=== PATIENT | female | born 1960 | race Caucasian/White ===

== ENCOUNTER 2017-02-05 00:14 | Emergency (ER) | payer BC, MEDICAID, OTHER ==
[2017-02-05] MEDS ORDERED: methylPREDNISolone Sodium Succinate 125 MG/2 ML SDV IM ONE (00:15)
[2017-02-05] MEDS ORDERED: EPINEPHrine 1:1000 1 MG/ML SDV IM ONE (00:15)
[2017-02-05] MEDS ORDERED: diphenhydrAMINE 50 MG/ML SDV IM ONE (00:15)
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
[2017-02-05 00:54] VITALS: BP 126/54
== END 2017-02-05 02:35 | disposition home or self-care (01) ==
LOC: CC.ED 00:14
DX: T78.2XXA Anaphylactic shock, unspecified, initial encounter (principal); F17.210 Nicotine dependence, cigarettes, uncomplicated; Z88.5 Allergy status to narcotic agent; Z88.0 Allergy status to penicillin; Z88.8 Allergy status to other drugs, medicaments and biological substances; Z91.030 Bee allergy status; Z87.01 Personal history of pneumonia (recurrent); Z87.440 Personal history of urinary (tract) infections; Z98.51 Tubal ligation status
CPT/HCPCS: 96372; 99282; J0171; J1200; J2930

== ENCOUNTER 2017-03-03 19:55 | Emergency (ER) | payer MEDICAID, OTHER ==
[~2017-03-03 19:55] MED LIST: Acetaminophen/HYDROcodone 325-5 MG Tab PO ONE
[2017-03-03] MEDS ORDERED: Sodium Chloride 0.9% 1,000 ML IV SCH (20:15)
[2017-03-03 20:18] LABS: CHLORIDE,CL 103 mEq/L (98-106); SODIUM,NA 142 mEq/L (136-145)
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
[2017-03-03] MEDS ORDERED: Lidocaine 2% 20 ML MDV ONE (21:18)
[2017-03-03] MEDS ORDERED: Take Home: Acetaminophen/HYDROcodone 325-5 MG, 2 Tab Pack PO ONE (21:20)
[2017-03-03] MEDS ORDERED: Diphtheria,Pertussis(Acell),Tetanus Vaccine 0.5 ML Syringe IM ONE (21:26)
[2017-03-03] MEDS ORDERED: Acetaminophen/HYDROcodone 325-5 MG Tab PO ONE (21:31)
[2017-03-03 22:55] VITALS: BP 185/81
== END 2017-03-03 22:00 | disposition home or self-care (01) ==
LOC: CC.ED 19:55
DX: S06.0X9A Concussion with loss of consciousness of unspecified duration, initial encounter (principal); S01.01XA Laceration without foreign body of scalp, initial encounter; S01.81XA Laceration without foreign body of other part of head, initial encounter; S13.4XXA Sprain of ligaments of cervical spine, initial encounter; F41.0 Panic disorder [episodic paroxysmal anxiety]; F17.210 Nicotine dependence, cigarettes, uncomplicated; F32.9 Major depressive disorder, single episode, unspecified; Z98.51 Tubal ligation status; Z88.0 Allergy status to penicillin; Z88.5 Allergy status to narcotic agent; Z91.030 Bee allergy status; Z87.820 Personal history of traumatic brain injury; Z23 Encounter for immunization; V53.5XXA Driver of pick-up truck or van injured in collision with car, pick-up truck or van in traffic accident, initial encounter; Y92.410 Unspecified street and highway as the place of occurrence of the external cause
CPT/HCPCS: 12002; 36415; 70450; 71260; 72125; 80053; 85025; 90471; 90715; 99285; A9270; Q9967; 96365

== ENCOUNTER → 2017-07-05 | Day surgery (SDC) | payer MEDICAID ==
[~2017-07-05] MED LIST changes: -Acetaminophen/HYDROcodone 325-5 MG Tab PO ONE; +Lactated Ringers 1,000 ML IV SCH; +Propofol 200 MG/20 ML SDV IV ONE
[2017-07-05 09:31] VITALS: BP 149/78
--- NOTE | 2017-07-11 11:28 | OR ---
DATE OF OPERATION: 07/05/2017 PREOPERATIVE DIAGNOSIS: ABDOMINAL PAIN WITH ALTERED BOWEL HABITS. POSTOPERATIVE DIAGNOSIS: ABDOMINAL PAIN WITH ALTERED BOWEL HABITS. SURGEON: Sandoval Tran MD PROCEDURE: 1. ESOPHAGOGASTRODUODENOSCOPY WITH BIOPSY X1, GILLES. 2. FULL-LENGTH COLONOSCOPY WITH POLYP REMOVAL X1. 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 COMPLICATIONS: None. SPECIMEN: 1. Antral biopsy x1. 2. GILLES. 3. Hyperplastic polyp, ascending colon. FINDINGS: 1. Chronic and mild antral gastritis. 2. Full-length colonoscopy. 3. Small hyperplastic polyp, ascending colon. RECOMMENDATIONS: Medical followup with patient's primary provider. INDICATIONS: The patient has been having some ongoing issues with epigastric discomfort and I believe some altered bowel habits and weight loss. She was sent for EGD colonoscopy. DESCRIPTION OF PROCEDURE: The patient was prepped and draped, placed in a left lateral decubitus position. A lubricated Olympus gastroscope was inserted over a bit and easily intubated in the esophagus. Esophageal lining was benign in its entire course. Z-line crisp and sharp around 38.5 to 39 cm. No hernia, stricturing, ulceration or Munoz's changes were seen. The scope was intubated into the stomach through the pylorus into the second portion of the duodenum. This in the duodenal bulb were benign. The scope was brought back into the stomach and retroflexed. The upper fundus and cardia were unremarkable. The patient has some distal antral gastritis which appears minor and chronic in nature. A biopsy was obtained for confirmation along with a GILLES test. Air was then suctioned from the stomach. The scope was removed without complication. A lubricated Olympus colonoscope was inserted and easily advanced to the cecum. Direct visualization of the ileocecal valve and appendiceal orifice was accomplished. The bowel prep was adequate. Upon withdrawal of the scope in the mid to distal ascending colon, the patient had 1 small flat hyperplastic- appearing polyp removed in its entirety with forceps biopsy x3. Hemostasis was spontaneous. The rest of the right transverse and descending colons were completely unremarkable. Throughout the left colon, I found no further signs of polyps, mass, ulceration or bleeding sites. No vascular abnormalities or signs of colitis. There was no significant diverticulosis. Rectal vault was unremarkable. Retroflexion of scope in the rectum showed no anal lesions. Air was then suctioned. Scope was removed without complication. YAW/MAI /[id number]
== END ==
LOC: CC.SDS 07:09
PROVIDERS: ATTEND Family Medicine
DX: D12.2 Benign neoplasm of ascending colon (principal); F17.210 Nicotine dependence, cigarettes, uncomplicated; Z88.0 Allergy status to penicillin; Z88.5 Allergy status to narcotic agent; Z88.8 Allergy status to other drugs, medicaments and biological substances; Z91.030 Bee allergy status; Z90.89 Acquired absence of other organs
CPT/HCPCS: 43239; 45380; 87081; J2704; J7120

== ENCOUNTER 2017-07-13 07:12 | Inpatient (IN) | payer MEDICAID ==
[2017-07-13] MEDS ORDERED: Albuterol/Ipratropium 3.0-0.5 MG/3 ML Neb Soln NEB ONE (08:05)
[2017-07-13 08:12] LABS: CHLORIDE,CL 100 mEq/L (98-106); SODIUM,NA 135 mEq/L (136-145)
--- NOTE | 2017-07-13 08:15 | EDM.PDOC ---
ED HPI GENERAL MEDICAL PROBLEM - General Chief Complaint: General Stated Complaint: weakness, weight loss Time Seen by Provider: 07/13/17 07:50 Source of Information: Reports: Patient History Limitations: Reports: No Limitations - History of Present Illness INITIAL COMMENTS - FREE TEXT/NARRATIVE: This patient is a 56 year old female that presents to the ER. Patient reports for the last 2 weeks she has been having generalized weakness, weight loss, cough, general malaise. The patient reports seeing her PCP over the past couple of weeks and getting a "head to toe workup" per patient. The patient reports that she has lost 7lbs this week. She reports the reason for her ER presentation today is she was walking home from work yesterday and could barely make it home due to feeling so weak. She reports then this morning she felt as if she could not even get up from a sitting position. She reports that there is something going on and she would like to be checked out in the ER. Patient does appear skinny and ill appearing. She is currently hemodynamically stable. Patient is alert and oriented. Patient does have history of smoking, says she has not smoked in the last 2 weeks. Patient history shows drinking previously before. No ETOH smell. Onset: Gradual Duration: Week(s): (2) Location: Reports: Chest Severity: Moderate Improves with: Reports: None Worsens with: Reports: None Associated Symptoms: Reports: Chest Pain, Cough, cough w sputum, Loss of Appetite, Malaise, Shortness of Breath, Weakness (generalized). Denies: Confusion, Diaphoresis, Fever/Chills, Headaches, Nausea/Vomiting, Rash, Seizure , Syncope Left Pain Score (Numeric/FACES): 4 - Related Data Allergies Allergy/AdvReac Type Severity Reaction Status Date / Time codeine Allergy Hives Verified 07/13/17 07:20 Penicillins Allergy Hives Verified 07/13/17 07:20 tuberculin,PPD,multi-puncture Allergy Hives Verified 07/13/17 07:20 venom-honey bee Allergy Swelling Verified 07/13/17 07:20 [bee venom (honey bee)] Home Meds: Home Meds Cefuroxime Axetil [Cefuroxime] 500 mg PO BID 07/13/17 [History] Past Medical History Cardiovascular History: Reports: Heart Murmur Respiratory History: Reports: Bronchitis, Recurrent, Pneumonia, Recurrent Gastrointestinal History: Reports: Hiatal Hernia, PUD Genitourinary History: Reports: UTI, Recurrent Musculoskeletal History: Reports: Back Pain, Chronic, Fracture, Other (See Below ) Other Musculoskeletal History: LLE FX WITH mrsa INFECTION Neurological History: Reports: Brain Injury, Concussion, Other (See Below) Other Neuro History: short term memory loss, nerve problems in neck Psychiatric History: Reports: Anxiety, Depression, Panic Attack - Infectious Disease History Infectious Disease History: Reports: MRSA - Past Surgical History HEENT Surgical History: Reports: Tonsillectomy Female Surgical History: Reports: Tubal Ligation Social & Family History - Tobacco Use Smoking Status *Q: Current Every Day Smoker Years of Tobacco use: 40 Packs/Tins Daily: 0.5 Used Tobacco, but Quit: No Tobacco Use Comment: HAS NOT SMOKED IN 2 WEEKS Second Hand Smoke Exposure: No - Caffeine Use Caffeine Use: Reports: None - Alcohol Use Number of Drinks Per Day: 2 - Recreational Drug Use Recreational Drug Use: Yes Drug Use in Last 12 Months: Yes Recreational Drug Type: Reports: Marijuana/Hashish Recreational Drug Use Frequency: Monthly ED ROS GENERAL - Review of Systems Review Of Systems: See Below Constitutional: Reports: Malaise, Weakness, Fatigue, Night Sweats, Decreased Appetite, Weight Loss HEENT: Reports: No Symptoms Respiratory: Reports: Shortness of Breath, Cough, Sputum Cardiovascular: Reports: Chest Pain Endocrine: Reports: No Symptoms GI/Abdominal: Reports: Nausea : Reports: No Symptoms Musculoskeletal: Reports: Neck Pain (chronic), Muscle Pain (generalized muscle aches) Skin: Reports: No Symptoms Neurological: Reports: No Symptoms Psychiatric: Reports: Anxiety Hematologic/Lymphatic: Reports: No Symptoms Immunologic: Reports: No Symptoms ED EXAM, GENERAL - Physical Exam Exam: See Below Exam Limited By: No Limitations General Appearance: Alert, WD/WN, Anxious, Thin, Other (ill appearing) Eye Exam: Bilateral Eye: Normal Inspection, PERRL Ears: Normal External Exam, Normal Canal, Hearing Grossly Normal, Normal TMs Ear Exam: Bilateral Ear: Auricle Normal, Canal Normal, TM normal Nose: Normal Inspection, Normal Mucosa, No Blood Throat/Mouth: Normal Inspection, Normal Lips, Normal Teeth, Normal Gums, Normal Oropharynx, Normal Voice, No Airway Compromise Head: Atraumatic, Normocephalic Neck: Normal Inspection, Supple, Non-Tender, Full Range of Motion Respiratory/Chest: No Respiratory Distress, No Accessory Muscle Use, Chest Non- Tender, Decreased Breath Sounds (moderately throughout.), Crackles, Wheezing. No: Lungs Clear, Respiratory Distress Cardiovascular: Normal Peripheral Pulses, Regular Rate, Rhythm, No Edema, No Gallop, No JVD, No Murmur, No Rub GI/Abdominal: Normal Bowel Sounds, Soft, Non-Tender, No Organomegaly, No Distention, No Abnormal Bruit, No Mass, Pelvis Stable Back Exam: Normal Inspection, Full Range of Motion. No: CVA Tenderness (L), CVA Tenderness (R) Extremities: Normal Inspection, Normal Range of Motion, Non-Tender, No Pedal Edema, Normal Capillary Refill Neurological: Alert, Oriented, Normal Cognition, No Motor/Sensory Deficits Psychiatric: Normal Affect, Normal Mood Skin Exam: Warm, Dry, Intact, Normal Color, No Rash Lymphatic: No Adenopathy Course - Vital Signs Last Recorded V/S: Last Vital Signs Temp 97.9 F 07/13/17 07:12 Pulse 95 07/13/17 07:12 Resp 18 07/13/17 07:12 BP 121/62 07/13/17 07:12 Pulse Ox 95 07/13/17 07:12 - Orders/Labs/Meds Orders: Active Orders 24 hr Category Date Time Status Patient Status Manage Transfer [TRANSFER] Routine ADT 07/13/17 10:26 Ordered RT Aerosol Therapy [RC] ASDIRECTED Care 07/13/17 08:05 Active Chest 2V [CR] Stat Exams 07/13/17 07:29 Taken Chest w Cont [CT] Stat Exams 07/13/17 08:28 Taken CULTURE BLOOD [BC] Stat Lab 07/13/17 08:50 Received CULTURE BLOOD [BC] Stat Lab 07/13/17 08:50 Received Blood Culture x2 Reflex Set [OM.PC] Stat Oth 07/13/17 07:59 Ordered Resuscitation Status Routine Resus Stat 07/13/17 10:28 Ordered Labs: Laboratory Tests 07/13/17 07/13/17 07/13/17 Range/Units 06:55 07:45 07:45 WBC 30.5 H* (5.0-10.0) 10^3/uL RBC 4.73 (4.00-5.50) 10^6/uL Hgb 15.9 (12.0-16.0) g/dL Hct 46.4 (37.0-47.0) % MCV 98.1 H (82.0-94.0) fL MCH 33.6 H (27.0-32.0) pg MCHC 34.3 (33.0-38.0) g/dL RDW Coeff of Tara 12.9 (11.0-15.0) % Plt Count 289 (150-400) 10^3/uL Add Manual Diff Yes Neutrophils % (Manual) 96 H (35-85) % Lymphocytes % (Manual) 1 L (21-55) % Monocytes % (Manual) 2 (2-12) % Absolute Neutrophils 29.28 H (1.80-7.00) 10^3/uL Lymphocytes # (Manual) 0.61 L (1.00-4.80) 10^3/uL Monocytes # (Manual) 0.61 (0.00-0.80) 10^3/uL Sodium 135 L (136-145) mEq/L Potassium 3.9 (3.5-5.0) mEq/L Chloride 100 (98-106) mEq/L Carbon Dioxide 21 (21-32) mmol/L BUN 12 (7-18) mg/dL Creatinine 0.7 (0.6-1.0) mg/dL Est Cr Clr Drug Dosing 51.41 mL/min Estimated GFR (MDRD) > 60 (>=60) mL/min Glucose 107 H (75-99) mg/dL Lactic Acid (0.4-2.0) mmol/L Calcium 9.5 (8.4-10.1) mg/dL Lactate Dehydrogenase 138 (100-190) U/L Creatine Kinase 36 (21-215) U/L Troponin I < 0.017 (0.00-0.06) ng/mL NT-Pro-B Natriuret Pep 97 (0-1000) pg/mL Urine Color (YELLOW) Urine Appearance (CLEAR) Urine pH (4.5-8.0) Ur Specific [place] (1.003-1.020) Urine Protein (NEGATIVE) mg/dL Urine Glucose (UA) (NEGATIVE) mg/dL Urine Ketones (NEGATIVE) mg/dL Urine Occult Blood (NEGATIVE) Urine Nitrite (NEGATIVE) Urine Bilirubin (NEGATIVE) Urine Urobilinogen (0.2-1.0) EU/dL Ur Leukocyte Esterase (NEGATIVE) Urine Opiates Screen (NEGATIVE) Ur Oxycodone Screen (NEGATIVE) Urine Methadone Screen (NEGATIVE) Ur Barbiturates Screen (NEGATIVE) U Tricyclic Antidepress (NEGATIVE) Ur Phencyclidine Scrn (NEGATIVE) Ur Amphetamine Screen (NEGATIVE) U Methamphetamines Scrn (NEGATIVE) Urine MDMA Screen (NEGATIVE) U Benzodiazepines Scrn (NEGATIVE) Urine Cocaine Screen (NEGATIVE) U Marijuana (THC) Screen (NEGATIVE) 07/13/17 07/13/17 07/13/17 Range/Units 07:45 07:50 07:50 WBC (5.0-10.0) 10^3/uL RBC (4.00-5.50) 10^6/uL Hgb (12.0-16.0) g/dL Hct (37.0-47.0) % MCV (82.0-94.0) fL MCH (27.0-32.0) pg MCHC (33.0-38.0) g/dL RDW Coeff of Tara (11.0-15.0) % Plt Count (150-400) 10^3/uL Add Manual Diff Neutrophils % (Manual) (35-85) % Lymphocytes % (Manual) (21-55) % Monocytes % (Manual) (2-12) % Absolute Neutrophils (1.80-7.00) 10^3/uL Lymphocytes # (Manual) (1.00-4.80) 10^3/uL Monocytes # (Manual) (0.00-0.80) 10^3/uL Sodium (136-145) mEq/L Potassium (3.5-5.0) mEq/L Chloride (98-106) mEq/L Carbon Dioxide (21-32) mmol/L BUN (7-18) mg/dL Creatinine (0.6-1.0) mg/dL Est Cr Clr Drug Dosing mL/min Estimated GFR (MDRD) (>=60) mL/min Glucose (75-99) mg/dL Lactic Acid 1.0 (0.4-2.0) mmol/L Calcium (8.4-10.1) mg/dL Lactate Dehydrogenase (100-190) U/L Creatine Kinase (21-215) U/L Troponin I (0.00-0.06) ng/mL NT-Pro-B Natriuret Pep (0-1000) pg/mL Urine Color Dark yellow (YELLOW) Urine Appearance Clear (CLEAR) Urine pH 6.5 (4.5-8.0) Ur Specific [place] 1.015 (1.003-1.020) Urine Protein Negative (NEGATIVE) mg/dL Urine Glucose (UA) Negative (NEGATIVE) mg/dL Urine Ketones 40 H (NEGATIVE) mg/dL Urine Occult Blood Trace-lysed H (NEGATIVE) Urine Nitrite Negative (NEGATIVE) Urine Bilirubin Negative (NEGATIVE) Urine Urobilinogen 0.2 (0.2-1.0) EU/dL Ur Leukocyte Esterase Negative (NEGATIVE) Urine Opiates Screen Negative (NEGATIVE) Ur Oxycodone Screen Negative (NEGATIVE) Urine Methadone Screen Negative (NEGATIVE) Ur Barbiturates Screen Negative (NEGATIVE) U Tricyclic Antidepress Negative (NEGATIVE) Ur Phencyclidine Scrn Negative (NEGATIVE) Ur Amphetamine Screen Negative (NEGATIVE) U Methamphetamines Scrn Negative (NEGATIVE) Urine MDMA Screen Negative (NEGATIVE) U Benzodiazepines Scrn Negative (NEGATIVE) Urine Cocaine Screen Negative (NEGATIVE) U Marijuana (THC) Screen Positive H (NEGATIVE) Meds: Medications Discontinued Medications Generic Name Dose Route Start Last Admin Trade Name Akiraq PRN Reason Stop Dose Admin Albuterol/Ipratropium 3 ml 07/13/17 08:05 07/13/17 08:18 Duoneb 3.0-0.5 Mg/3 Ml NEB 07/13/17 08:06 3 ml ONETIME ONE Administration Sodium Chloride 1,000 mls @ 1,000 mls/hr 07/13/17 08:33 07/13/17 09:24 Normal Saline IV 07/13/17 09:32 1,000 mls/hr .BOLUS ONE Administration Iopamidol 100 ml 07/13/17 08:44 07/13/17 09:05 Isovue-300 (61%) IVPUSH 07/13/17 08:45 100 ml ONETIME ONE Administration - Radiology Interpretation Free Text/Narrative:: CXR: No infiltrates, no cardiac enlargement, no pulmonary edema. CT Chest with contrast:RLL infiltrate. No nodules or any adenopathy seen. No fluid. Discussed with radiologist. Did discuss with radiologist the patient weight loss, she looked at previous abd /pelvis ct and reports possible narrowing of the sigmoid colon on slide 52, possible artifact verses lesion. Patient reports she has had colonoscopy that was normal. CT Results Date: 07/13/17 CT Results Time: 09:33 - Re-Assessments/Exams Free Text/Narrative Re-Assessment/Exam: 07/13/17 10:51 I do believe this patient is septic with pneumonia. She has a very high wbc, pneumonia, looks generally ill. I did explain to the patient her condition and how sick I believe she is. She did ask me if she may . I did instruct her that she is very ill and is always a possibility with that wbc elevation and pneumonia and sepsis. At this point she did start to cry. I did explain to her transfer to a higher level of care. The patient refuses transfer. She reports she wants to stay here because her parents are here and she would like to stay close to home. I did explain to the patient that her condition may worses, she may , and I may not be able to provide a high level of care to her. She reports that she understands that staying here she may and her condition may worsen. She is alert and oriented. She is of sound body and mind. I suleman give the patient fluids, abx, and breathing treatments. I will admit the patient acute status. Patient is aware that she may change her mind and be transferred at any time while here. But, at this time she refuses. She currently is hemodynamically stable and not in respiratory distress. Departure - Departure Time of Disposition: 10:58 Disposition: Admitted As Inpatient 66 Condition: Serious Clinical Impression: Septicemia, pneumococcal, General weakness Leukocytosis (leucocytosis) Qualifiers: Leukocytosis type: unspecified Qualified Code(s): D72.829 - Elevated white blood cell count, unspecified Pneumonia Qualifiers: Pneumonia type: due to unspecified organism Laterality: right Lung location: lower lobe of lung Qualified Code(s): J18.1 - Lobar pneumonia, unspecified organism Dyspnea Qualifiers: Dyspnea type: shortness of breath Qualified Code(s): R06.02 - Shortness of breath; R06.00 - Dyspnea, unspecified; R06.01 - Orthopnea - Discharge Information Forms: ED Department Discharge - My Orders Last 24 Hours: My Active Orders 07/13/17 07:29 Chest 2V [CR] Stat 07/13/17 07:59 Blood Culture x2 Reflex Set [OM.PC] Stat 07/13/17 08:05 RT Aerosol Therapy [RC] ASDIRECTED 07/13/17 08:28 Chest w Cont [CT] Stat 07/13/17 08:50 CULTURE BLOOD [BC] Stat CULTURE BLOOD [BC] Stat 07/13/17 10:26 Patient Status Manage Transfer [TRANSFER] Routine 07/13/17 10:28 Resuscitation Status Routine - Assessment/Plan Last 24 Hours: My Active Orders 07/13/17 07:29 Chest 2V [CR] Stat 07/13/17 07:59 Blood Culture x2 Reflex Set [OM.PC] Stat 07/13/17 08:05 RT Aerosol Therapy [RC] ASDIRECTED 07/13/17 08:28 Chest w Cont [CT] Stat 07/13/17 08:50 CULTURE BLOOD [BC] Stat CULTURE BLOOD [BC] Stat 07/13/17 10:26 Patient Status Manage Transfer [TRANSFER] Routine 07/13/17 10:28 Resuscitation Status Routine Plan: PLEASE SEE RN NOTE FOR PFSH. PLEASE USE ER H&P ADMIT H&P.
[2017-07-13] MEDS ORDERED: Sodium Chloride 0.9% 1,000 ML IV ONE (08:33)
[2017-07-13] MEDS ORDERED: Iopamidol 612 MG/ML 100 ML Bottle IVPUSH ONE (08:44)
[2017-07-13] MEDS ORDERED: Docusate Sodium 100 MG Cap PO PRN (11:18)
[2017-07-13] MEDS ORDERED: Acetaminophen 325 MG Tab PO PRN (11:18)
[2017-07-13] MEDS ORDERED: Temazepam 15 MG Cap PO PRN (11:18)
[2017-07-13] MEDS ORDERED: HYDROmorphone 1 MG/ML Syringe IVPUSH PRN (11:18)
[2017-07-13] MEDS ORDERED: Sodium Chloride 0.9% 2,000 ML IV ONE (11:18)
[2017-07-13] MEDS: Enoxaparin 30 MG/0.3 ML Syringe SUBCUT SCH (12:27)
[2017-07-13] MEDS: Albuterol/Ipratropium 3.0-0.5 MG/3 ML Neb Soln NEB SCH ×3 (12:45→19:52)
[2017-07-13] MEDS: Ibuprofen 200 MG Tab PO PRN ×2 (12:53→20:34)
[2017-07-13] MEDS: Ondansetron 4 MG/2 ML SDV IV PRN (12:55)
[2017-07-13] MEDS: Piperacillin/Tazobactam 4.5 GM in Sodium Chloride 0.9% 100 ML IV SCH ×3 (12:57→23:49)
[2017-07-13] MEDS ORDERED: Cefuroxime 250 MG Tab PO SCH (20:00)
[2017-07-13] MEDS: Albuterol/Ipratropium 3.0-0.5 MG/3 ML Neb Soln NEB PRN (21:40)
[2017-07-13] MEDS: Sodium Chloride 0.9% 1,000 ML IV SCH (22:13)
[2017-07-14] MEDS: Albuterol/Ipratropium 3.0-0.5 MG/3 ML Neb Soln NEB PRN (02:18)
[2017-07-14] MEDS: Acetaminophen/HYDROcodone 325-5 MG Tab PO PRN (05:12)
[2017-07-14] MEDS: LORazepam 2 MG/ML Syringe IVPUSH PRN ×2 (05:35→19:37)
[2017-07-14] MEDS: Piperacillin/Tazobactam 4.5 GM in Sodium Chloride 0.9% 100 ML IV SCH ×3 (06:04→18:44)
[2017-07-14 08:21] LABS: CHLORIDE,CL 111 mEq/L (98-106); SODIUM,NA 144 mEq/L (136-145)
[2017-07-14] MEDS: Albuterol/Ipratropium 3.0-0.5 MG/3 ML Neb Soln NEB SCH ×3 (08:40→19:33)
[2017-07-14] MEDS: guaiFENesin 200 MG Tab PO SCH ×3 (09:09→19:32)
[2017-07-14] MEDS: Ibuprofen 200 MG Tab PO PRN (09:09)
--- NOTE | 2017-07-14 09:37 | PCM.PN ---
- General Info Functional Status: Reports: Pain Controlled (with pain medciation, does have periods of painful cough in chest. ), Tolerating Diet - Review of Systems General: Reports: Weakness (gneralized), Fatigue, Malaise, Chills, Night Sweats , Appetite (decreased) HEENT: Reports: Sinus Congestion (mild) Pulmonary: Reports: Shortness of Breath, Pleuritic Chest Pain, Cough. Denies: Sputum Cardiovascular: Reports: Lightheadedness Gastrointestinal: Reports: No Symptoms Genitourinary: Reports: No Symptoms Musculoskeletal: Reports: Other (general body aches) Skin: Reports: No Symptoms Neurological: Reports: No Symptoms Psychiatric: Reports: Anxiety - Patient Data Vitals - Most Recent: Last Vital Signs Temp 98.0 F 07/14/17 07:55 Pulse 72 07/14/17 07:55 Resp 18 07/14/17 07:55 BP 107/49 L 07/14/17 07:55 Pulse Ox 100 07/14/17 07:55 Weight - Most Recent: 88 lb 3.2 oz I&O - Last 24 Hours: Intake & Output 07/13/17 07/14/17 07/14/17 22:59 06:59 14:59 Intake Total 200 Balance 200 Lab Results Last 24 Hours: Laboratory Results - last 24 hr 07/14/17 07/14/17 Range/Units 07:00 07:00 WBC 17.5 H (5.0-10.0) 10^3/uL RBC 3.61 L (4.00-5.50) 10^6/uL Hgb 12.0 (12.0-16.0) g/dL Hct 36.7 L (37.0-47.0) % MCV 101.7 H (82.0-94.0) fL MCH 33.2 H (27.0-32.0) pg MCHC 32.7 L (33.0-38.0) g/dL RDW Coeff of Tara 13.0 (11.0-15.0) % Plt Count 222 (150-400) 10^3/uL Neut % (Auto) 87.9 H (35-85) % Lymph % (Auto) 5.8 L (10-55) % [place] % (Auto) 6.0 (0-16) % Eos % (Auto) 0.2 (0-5) % Baso % (Auto) 0.1 (0-3) % Neut # (Auto) 15.43 H (1.80-7.00) 10^3/uL Lymph # (Auto) 1.01 (1.00-4.80) 10^3/uL [place] # (Auto) 1.05 H (0.00-0.80) 10^3/uL Eos # (Auto) 0.03 (0.00-0.45) 10^3/uL Baso # (Auto) 0.02 10^3/uL Sodium 144 (136-145) mEq/L Potassium 3.3 L (3.5-5.0) mEq/L Chloride 111 H (98-106) mEq/L Carbon Dioxide 23 (21-32) mmol/L BUN 5 L D (7-18) mg/dL Creatinine 0.6 (0.6-1.0) mg/dL Est Cr Clr Drug Dosing 66.12 mL/min Estimated GFR (MDRD) > 60 (>=60) mL/min Glucose 95 (75-99) mg/dL Calcium 8.1 L (8.4-10.1) mg/dL Total Bilirubin 0.4 (0.0-1.0) mg/dL AST 9 L (15-37) U/L ALT 10 L (12-78) U/L Alkaline Phosphatase 85 (46-116) U/L C-Reactive Protein 12.1 H (0.2-0.8) mg/dL Total Protein 5.7 L (6.4-8.2) g/dL Albumin 2.5 L (3.4-5.0) g/dL Med Orders - Current: Current Medications Acetaminophen (Tylenol) 650 mg PO Q4H PRN PRN Reason: Pain (Mild 1-3)/fever Hydrocodone Bitart/Acetaminophen ([place] 325-5 Mg) 1 tab PO Q4H PRN PRN Reason: Pain (moderate 4-6) Last Admin: 07/14/17 05:12 Dose: 1 tab Albuterol/Ipratropium (Duoneb 3.0-0.5 Mg/3 Ml) 3 ml NEB Q4H PRN PRN Reason: Shortness Of Breath/wheezing Last Admin: 07/14/17 02:18 Dose: 3 ml Albuterol/Ipratropium (Duoneb 3.0-0.5 Mg/3 Ml) 3 ml NEB TIDRT [facility] Last Admin: 07/14/17 08:40 Dose: 3 ml Docusate Sodium (Colace) 100 mg PO BID PRN PRN Reason: Constipation Enoxaparin Sodium (Lovenox) 30 mg SUBCUT Q24H [facility] Last Admin: 07/13/17 12:27 Dose: 30 mg Guaifenesin (Organ-I Nr) 200 mg PO TID [facility] Last Admin: 07/14/17 09:09 Dose: 200 mg Hydromorphone HCl (Dilaudid) 0.5 mg IVPUSH Q2H PRN PRN Reason: Pain (severe 7-10) Piperacillin Sod/Tazobactam (Sod 4.5 gm/ Sodium Chloride) 100 mls @ 200 mls/hr IV Q6H [facility] Last Admin: 07/14/17 06:04 Dose: 200 mls/hr Sodium Chloride (Normal Saline) 1,000 mls @ 100 mls/hr IV ASDIRECTED [facility] Last Admin: 07/13/17 22:13 Dose: 100 mls/hr Vancomycin HCl 500 mg/ Sodium (Chloride) 250 mls @ 166.667 mls/hr IV Q12H [facility] Last Admin: 07/14/17 01:35 Dose: 166.667 mls/hr Ibuprofen (Motrin) 600 mg PO Q6H PRN PRN Reason: Pain (mild 1-3) Last Admin: 07/14/17 09:09 Dose: 600 mg Lorazepam (Ativan) 1 mg IVPUSH Q6H PRN PRN Reason: Anxiety Last Admin: 07/14/17 05:35 Dose: 1 mg Ondansetron HCl (Zofran) 4 mg IV Q6H PRN PRN Reason: Nausea/Vomiting Last Admin: 07/13/17 12:55 Dose: 4 mg Temazepam (Restoril) 15 mg PO BEDTIME PRN PRN Reason: Sleep Vancomycin HCl (Pharmacy To Dose - Vancomycin) 1 dose .XX ASDIRECTED [facility] Discontinued Medications Albuterol/Ipratropium (Duoneb 3.0-0.5 Mg/3 Ml) 3 ml NEB ONETIME ONE Stop: 07/13/17 08:06 Last Admin: 07/13/17 08:18 Dose: 3 ml Cefuroxime Axetil (Ceftin) 500 mg PO BID ARNALDO Sodium Chloride (Normal Saline) 1,000 mls @ 1,000 mls/hr IV .BOLUS ONE Stop: 07/13/17 09:32 Last Admin: 07/13/17 09:24 Dose: 1,000 mls/hr Sodium Chloride (Normal Saline) 2,000 mls @ 999 mls/hr IV .BOLUS ONE Stop: 07/13/17 13:18 Last Admin: 07/13/17 12:26 Dose: 999 mls/hr Iopamidol (Isovue-300 (61%)) 100 ml IVPUSH ONETIME ONE Stop: 07/13/17 08:45 Last Admin: 07/13/17 09:05 Dose: 100 ml - Exam General: Alert, Oriented, Cooperative, No Acute Distress, Other (appears ill and thin; coughing. ) HEENT: Pupils Equal, Pupils Reactive Neck: Supple Lungs: Decreased Breath Sounds, Crackles, Rhonchi, Wheezing Cardiovascular: Regular Rate, Regular Rhythm, No Murmurs GI/Abdominal Exam: Soft, Non-Tender Back Exam: Normal Inspection, Full Range of Motion Extremities: Normal Inspection, Normal Range of Motion, Non-Tender, No Pedal Edema, Normal Capillary Refill Peripheral Pulses: 2+: Radial (L), Radial (R), Posterior Tibial (L), Posterior Tibial (R), Dorsalis Pedis (L), Dorsalis Pedis (R) Skin: Warm, Dry, Intact Neurological: No New Focal Deficit Psy/Mental Status: Alert, Anxious - Problem List Review Problem List Initiated/Reviewed/Updated: Yes - My Orders Last 24 Hours: My Active Orders 07/13/17 13:00 Vancomycin 500 mg Sodium Chloride 0.9% [Normal Saline] 250 ml IV Q12H 07/14/17 05:21 LORazepam [Ativan] 1 mg IVPUSH Q6H PRN 07/14/17 08:45 guaiFENesin [Organ-I NR] 200 mg PO TID - Plan Plan:: This patient was admitted yesterday for pneumonia and sepsis. She was put on IV abx, fluids, breathing treatments. The patient today reports that she is coughing a lot more and has more mucous in her chest that she feels is starting to move around. She reports she is able to cough a lot, but nothing comes up from her chest. She reports that she continues to feel generally weak, malaise, coughing, shrot of breath, and pain in her chest when she coughs or takes big deep breaths. The patient reports that she thinks she does feel slightly improved from yesterday. Her labs yesterday were wbc 30.5, Potassium 3.9. Today her labs are wbc 17.5 which shows significant improvement, potassium is now 3.3 due to fluids given, and today a CRP drawn is 12.1. The patient would like to continue her stay here in [place]. We will continue fluids, abx, breathing treatments. I have also ordered Ativan early this morning for anxiety and Mucinex to help loosen her chest secretions. She is not in respiratory distress. She is able to talk in complete sentences, then starts coughing.
[2017-07-14] MEDS: Sodium Chloride 0.9% 1,000 ML IV SCH ×2 (10:55→19:33)
[2017-07-14] MEDS: Enoxaparin 30 MG/0.3 ML Syringe SUBCUT SCH (12:24)
[2017-07-15] MEDS: Piperacillin/Tazobactam 4.5 GM in Sodium Chloride 0.9% 100 ML IV SCH ×2 (00:08→05:20)
[2017-07-15] MEDS: Ibuprofen 200 MG Tab PO PRN (00:11)
[2017-07-15] MEDS: Ondansetron 4 MG/2 ML SDV IV PRN (05:19)
[2017-07-15] MEDS: Acetaminophen/HYDROcodone 325-5 MG Tab PO PRN ×2 (05:20→18:10)
[2017-07-15] MEDS: Albuterol/Ipratropium 3.0-0.5 MG/3 ML Neb Soln NEB SCH ×3 (07:39→20:39)
[2017-07-15] MEDS: guaiFENesin 200 MG Tab PO SCH ×3 (07:39→20:39)
[2017-07-15] MEDS: LORazepam 2 MG/ML Syringe IVPUSH PRN ×2 (07:48→14:22)
[2017-07-15] MEDS ORDERED: Sodium Chloride 0.45% with KCl 1,000 ML IV SCH (08:15)
[2017-07-15 08:24] LABS: CHLORIDE,CL 111 mEq/L (98-106); SODIUM,NA 144 mEq/L (136-145)
--- NOTE | 2017-07-15 09:26 | PN ---
DATE: 07/15/2017 S: Avelina Hay is in with a COPD and pneumonitis-type picture. She says she feels better. O: NECK: Supple. CHEST: Wheezing, crepitus throughout. CARDIAC: Sounds are good. ABDOMEN: Tenderness in the left lower quadrant. ASSESSMENT: PNEUMONITIS, CHRONIC OBSTRUCTIVE PULMONARY DISEASE WITH ACUTE EXACERBATION. P: I did spend several minutes talking about never smoking again, she said she is not. I am going to give her little IV Solu-Medrol and then monitor her lab work. AJ/MAI /[id number]
[2017-07-15] MEDS: methylPREDNISolone Sodium Succinate 125 MG/2 ML SDV IVPUSH SCH (10:45)
[2017-07-15] MEDS: Enoxaparin 30 MG/0.3 ML Syringe SUBCUT SCH (12:14)
[2017-07-15] MEDS: Piperacillin/Tazobactam 3.375 GM in Sodium Chloride 0.9% 50 ML IV SCH ×2 (12:15→18:10)
[2017-07-15] MEDS ORDERED: LORazepam 0.5 MG Tab PO PRN (19:27)
[2017-07-16] MEDS: Piperacillin/Tazobactam 3.375 GM in Sodium Chloride 0.9% 50 ML IV SCH ×2 (01:33→05:30)
[2017-07-16] MEDS: Acetaminophen/HYDROcodone 325-5 MG Tab PO PRN (05:32)
[2017-07-16] MEDS: methylPREDNISolone Sodium Succinate 125 MG/2 ML SDV IVPUSH SCH (08:29)
[2017-07-16] MEDS: guaiFENesin 200 MG Tab PO SCH (08:30)
[2017-07-16] MEDS: Albuterol/Ipratropium 3.0-0.5 MG/3 ML Neb Soln NEB SCH (08:30)
[2017-07-16 08:36] VITALS: BP 144/87
--- NOTE | 2017-07-16 12:14 | PCM.DCSUM1 ---
Discharge Summary - Hospital Course HPI Initial Comments: Patient is a 56 year old female who presented to the ER on 07/13/2017 with ongoing concerns of weight loss, cough, shortness of breath, fatigue, and generalized weakness. She reported that her baseline weight has always been about 110 lbs. She reports she has now been in the upper 80's. Reports a 7 lb weight loss in the past week. Reports she recently had an EGD and a colonoscopy , as well as CT of her chest, abdomen, and pelvis without significant findings. Patient was found to have leukocytosis with a WBC count of 30.5. CXR was negative. Chest CT showed pneumonitis. Patient was admitted and given IV Zosyn and Vanco. Patient also received a dose of IV solumedrol and Duoneb treatments. Throughout hospital stay, shortness of breath, cough, and weakness all improved. Patient's WBC and CRP were trending down. Blood cultures remained negative. Sputum sample grew normal karthik. Patient had two stool samples which were negative for occult blood. At the time of discharge patient appeared much better and was feeling much better. She felt ready for discharge. She reports that she hasn't had a cigarette in the past two weeks and she was "never going to have another one". Patient was educated on current COPD status and risks to her health if she continues to smoke. Patient voiced understanding and reported she was done smoking. She was also going to have her roommate start smoking outside, away from her. Patient will be discharged home on PO levaquin and PO prednisone. - Discharge Data Discharge Date: 07/16/17 Discharge Disposition: Home, Self-Care 01 Condition: Good - Discharge Diagnosis/Problem(s) (1) Dyspnea SNOMED Code(s): 860104844 ICD Code: R06.00 - DYSPNEA, UNSPECIFIED Status: Acute Priority: High Qualifiers: Dyspnea type: shortness of breath Qualified Code(s): R06.02 - Shortness of breath; R06.00 - Dyspnea, unspecified; R06.01 - Orthopnea (2) General weakness SNOMED Code(s): 03797052 ICD Code: R53.1 - WEAKNESS Status: Acute (3) Leukocytosis (leucocytosis) SNOMED Code(s): 973829441 ICD Code: D72.829 - ELEVATED WHITE BLOOD CELL COUNT, UNSPECIFIED Status: Acute Qualifiers: Leukocytosis type: unspecified Qualified Code(s): D72.829 - Elevated white blood cell count, unspecified (4) Pneumonia SNOMED Code(s): 531742532 ICD Code: J18.9 - PNEUMONIA, UNSPECIFIED ORGANISM Status: Acute Qualifiers: Pneumonia type: due to unspecified organism Laterality: right Lung location: lower lobe of lung Qualified Code(s): J18.1 - Lobar pneumonia, unspecified organism (5) COPD (chronic obstructive pulmonary disease) SNOMED Code(s): 27334321 ICD Code: J44.9 - CHRONIC OBSTRUCTIVE PULMONARY DISEASE, UNSPECIFIED Status : Acute Priority: High Qualifiers: COPD type: COPD with acute exacerbation Qualified Code(s): J44.1 - Chronic obstructive pulmonary disease with (acute) exacerbation - Patient Instructions Diet: Regular Diet as Tolerated Activity: As Tolerated Notify Provider of: Fever, Increased Pain - Discharge Plan Prescriptions/Med Rec: Levofloxacin [Levaquin] 500 mg PO Q24H 7 Days #7 tablet Prednisone [IJD: predniSONE] 20 mg PO BID 5 Days #10 tab Home Medications: Home Meds Acetaminophen [Tylenol] 650 mg PO Q4H PRN tablet 07/16/17 [Rx] Levofloxacin [Levaquin] 500 mg PO Q24H 7 Days #7 tablet 07/16/17 [Rx] Prednisone [IJD: predniSONE] 20 mg PO BID 5 Days #10 tab 07/16/17 [Rx] Patient Handouts: Chronic Obstructive Pulmonary Disease Exacerbation, Easy-to- Read, Smoking Cessation, Tips for Success, [id number], Shortness of Breath, [id number], Community-Acquired Pneumonia, Adult, [id number] Forms: ED Department Discharge - General Info Date of Service: 07/16/17 Admission Dx/Problem (Free Text: Pneumonia Dyspnea Weakness Leukocytosis COPD Exacerbation Subjective Update: At the time of discharge patient denied any complaints. She reports she was feeling much better. Reports weakness, shortness of breath, and cough have all improved. Has not had a fever. Functional Status: Reports: Pain Controlled, Tolerating Diet, Ambulating, Urinating. Denies: New Symptoms - Review of Systems General: Reports: No Symptoms, Fatigue. Denies: Fever, Weakness, Malaise, Chills HEENT: Reports: No Symptoms Pulmonary: Reports: Shortness of Breath, Cough, Sputum Cardiovascular: Reports: No Symptoms Gastrointestinal: Reports: Other (some cramping pain to left abdomen). Denies: Constipation, Decreased Appetite, Diarrhea, Hematochezia, Melena, Nausea, Vomiting Genitourinary: Reports: No Symptoms Musculoskeletal: Reports: No Symptoms Skin: Reports: No Symptoms Neurological: Reports: No Symptoms Psychiatric: Reports: No Symptoms - Patient Data Vitals - Most Recent: Last Vital Signs Temp 97.6 F 07/16/17 08:00 Pulse 72 07/16/17 08:00 Resp 20 07/16/17 08:00 BP 144/87 H 07/16/17 08:00 Pulse Ox 98 07/16/17 08:00 Weight - Most Recent: 88 lb 4.8 oz [facility] Results - Last 24 hrs: Microbiology 07/15/17 08:08 Occult Blood - Preliminary Stool / Feces - Stool, Liquid 07/14/17 13:14 Gram Stain - Final Sputum - Expectorated Sputum Culture - Final Med Orders - Current: Current Medications Acetaminophen (Tylenol) 650 mg PO Q4H PRN PRN Reason: Pain (Mild 1-3)/fever Last Admin: 07/14/17 19:37 Dose: 650 mg Hydrocodone Bitart/Acetaminophen ([place] 325-5 Mg) 1 tab PO Q4H PRN PRN Reason: Pain (moderate 4-6) Last Admin: 07/16/17 05:32 Dose: 1 tab Albuterol/Ipratropium (Duoneb 3.0-0.5 Mg/3 Ml) 3 ml NEB Q4H PRN PRN Reason: Shortness Of Breath/wheezing Last Admin: 07/14/17 02:18 Dose: 3 ml Albuterol/Ipratropium (Duoneb 3.0-0.5 Mg/3 Ml) 3 ml NEB TIDRT [facility] Last Admin: 07/16/17 08:30 Dose: 3 ml Docusate Sodium (Colace) 100 mg PO BID PRN PRN Reason: Constipation Enoxaparin Sodium (Lovenox) 30 mg SUBCUT Q24H [facility] Last Admin: 07/15/17 12:14 Dose: 30 mg Guaifenesin (Organ-I Nr) 200 mg PO TID [facility] Last Admin: 07/16/17 08:30 Dose: 200 mg Vancomycin HCl 1 gm/ Sodium (Chloride) 250 mls @ 167 mls/hr IV Q12H [facility] Last Admin: 07/16/17 01:34 Dose: 167 mls/hr Potassium Chloride/Sodium Chloride (1/2 Ns With 20 Meq Kcl) 1,000 mls @ 75 mls/ hr IV ASDIRECTED [facility] Last Admin: 07/15/17 16:03 Dose: 75 mls/hr Piperacillin Sod/Tazobactam (Sod 3.375 gm/ Sodium Chloride) 50 mls @ 100 mls/ hr IV Q6H [facility] Last Admin: 07/16/17 05:30 Dose: 100 mls/hr Ibuprofen (Motrin) 600 mg PO Q6H PRN PRN Reason: Pain (mild 1-3) Last Admin: 07/15/17 00:11 Dose: 600 mg Lorazepam (Ativan) 0.5 - 1 mg PO Q6H PRN PRN Reason: Anxiety Methylprednisolone Sodium Succinate (Solu-Medrol) 62.5 mg IVPUSH Q24H [facility] Last Admin: 07/16/17 08:29 Dose: 62.5 mg Ondansetron HCl (Zofran) 4 mg IV Q6H PRN PRN Reason: Nausea/Vomiting Last Admin: 07/15/17 05:19 Dose: 4 mg Temazepam (Restoril) 15 mg PO BEDTIME PRN PRN Reason: Sleep Vancomycin HCl (Pharmacy To Dose - Vancomycin) 1 dose .XX ASDIRECTED [facility] Discontinued Medications Albuterol/Ipratropium (Duoneb 3.0-0.5 Mg/3 Ml) 3 ml NEB ONETIME ONE Stop: 07/13/17 08:06 Last Admin: 07/13/17 08:18 Dose: 3 ml Cefuroxime Axetil (Ceftin) 500 mg PO BID [facility] Hydromorphone HCl (Dilaudid) 0.5 mg IVPUSH Q2H PRN PRN Reason: Pain (severe 7-10) Sodium Chloride (Normal Saline) 1,000 mls @ 1,000 mls/hr IV .BOLUS ONE Stop: 07/13/17 09:32 Last Admin: 07/13/17 09:24 Dose: 1,000 mls/hr Piperacillin Sod/Tazobactam (Sod 4.5 gm/ Sodium Chloride) 100 mls @ 200 mls/hr IV Q6H [facility] Last Admin: 07/15/17 05:20 Dose: 200 mls/hr Sodium Chloride (Normal Saline) 2,000 mls @ 999 mls/hr IV .BOLUS ONE Stop: 07/13/17 13:18 Last Admin: 07/13/17 12:26 Dose: 999 mls/hr Sodium Chloride (Normal Saline) 1,000 mls @ 100 mls/hr IV ASDIRECTED [facility] Last Admin: 07/14/17 19:33 Dose: 100 mls/hr Vancomycin HCl 500 mg/ Sodium (Chloride) 250 mls @ 166.667 mls/hr IV Q12H [facility] Last Admin: 07/14/17 13:12 Dose: 166.667 mls/hr Iopamidol (Isovue-300 (61%)) 100 ml IVPUSH ONETIME ONE Stop: 07/13/17 08:45 Last Admin: 07/13/17 09:05 Dose: 100 ml Lorazepam (Ativan) 1 mg IVPUSH Q6H PRN PRN Reason: Anxiety Last Admin: 07/15/17 14:22 Dose: 1 mg - Exam General: Reports: Alert, Oriented HEENT: Reports: Pupils Equal, Pupils Reactive, EOMI, Mucous Membr. Moist/[place] Neck: Reports: Supple Lungs: Reports: Normal Respiratory Effort, Decreased Breath Sounds, Crackles Cardiovascular: Reports: Regular Rate, Regular Rhythm GI/Abdominal Exam: Normal Bowel Sounds, Soft, Non-Tender, No Organomegaly, No Distention, No Abnormal Bruit, No Mass, Pelvis Stable (Female) Exam: Deferred Rectal (Female) Exam: Deferred Back Exam: Reports: Normal Inspection, Full Range of Motion Extremities: Normal Inspection, Normal Range of Motion, Non-Tender, No Pedal Edema, Normal Capillary Refill Skin: Reports: Warm, Dry, Intact Neurological: Reports: No New Focal Deficit Psy/Mental Status: Reports: Alert, Normal Affect, Normal Mood *Q Meaningful Use (DIS) - VTE *Q VTE Criteria *Q: - Stroke *Q Stroke Criteria *Q: - AMI *Q AMI Criteria *Q: - [place] I, II, III (1) Dyspnea SNOMED Code(s): 676826430 ICD Code: R06.00 - DYSPNEA, UNSPECIFIED Status: Acute Priority: High Qualifiers: Dyspnea type: shortness of breath Qualified Code(s): R06.02 - Shortness of breath; R06.00 - Dyspnea, unspecified; R06.01 - Orthopnea (2) General weakness SNOMED Code(s): 30386634 ICD Code: R53.1 - WEAKNESS Status: Acute (3) Leukocytosis (leucocytosis) SNOMED Code(s): 367883554 ICD Code: D72.829 - ELEVATED WHITE BLOOD CELL COUNT, UNSPECIFIED Status: Acute Qualifiers: Leukocytosis type: unspecified Qualified Code(s): D72.829 - Elevated white blood cell count, unspecified (4) Pneumonia SNOMED Code(s): 324475625 ICD Code: J18.9 - PNEUMONIA, UNSPECIFIED ORGANISM Status: Acute Qualifiers: Pneumonia type: due to unspecified organism Laterality: right Lung location: lower lobe of lung Qualified Code(s): J18.1 - Lobar pneumonia, unspecified organism (5) COPD (chronic obstructive pulmonary disease) SNOMED Code(s): 84195111 ICD Code: J44.9 - CHRONIC OBSTRUCTIVE PULMONARY DISEASE, UNSPECIFIED Status : Acute Priority: High Qualifiers: COPD type: COPD with acute exacerbation Qualified Code(s): J44.1 - Chronic obstructive pulmonary disease with (acute) exacerbation - Plan FREE TEXT/NARRATIVE: Patient will be discharged home. Script sent for PO Levaquin x 7 days and PO prednisone x 5 days. Note sent with patient for work. Will recommend two additional days off of work. May return to work on Saturday07/19/2017 without restriction. Activity as tolerated. Smoking cessation discussed with patient. Discussed importance of avoiding second hand smoke exposure as well. Recommend patient start taking magnesium and vitamin D 2000 u supplement daily. Return to clinic as needed. Seek medical care if symptoms worsen or do not improve. - Problem List Review Problem List Initiated/Reviewed/Updated: Yes - Orders Orders Last 24hrs: Active Orders 24 hr Category Date Time Status Ready for Discharge [RC] PER UNIT ROUTINE Care 07/16/17 10:12 Active BMP [BASIC METABOLIC PANEL,BMP] [CHEM] DAILY Lab 07/17/17 08:05 Ordered OCCULT BLOOD SCREEN [OP] Lab 07/16/17 08:08 Ordered OCCULT BLOOD SCREEN [OP] Lab 07/16/17 09:00 Ordered LORazepam [Ativan] Med 07/15/17 19:27 Active 0.5 - 1 mg PO Q6H PRN Piperacillin/Tazobactam [Zosyn] 3.375 gm Med 07/15/17 12:00 Active Sodium Chloride 0.9% [Normal Saline] 50 ml IV Q6H Medication Orders Acetaminophen (Tylenol) 650 mg PO Q4H PRN PRN Reason: Pain (Mild 1-3)/fever Last Admin: 07/14/17 19:37 Dose: 650 mg Hydrocodone Bitart/Acetaminophen ([place] 325-5 Mg) 1 tab PO Q4H PRN PRN Reason: Pain (moderate 4-6) Last Admin: 07/16/17 05:32 Dose: 1 tab Admin: 07/15/17 18:10 Dose: 1 tab Admin: 07/15/17 05:20 Dose: 1 tab Admin: 07/14/17 05:12 Dose: 1 tab Albuterol/Ipratropium (Duoneb 3.0-0.5 Mg/3 Ml) 3 ml NEB Q4H PRN PRN Reason: Shortness Of Breath/wheezing Last Admin: 07/14/17 02:18 Dose: 3 ml Admin: 07/13/17 21:40 Dose: 3 ml Albuterol/Ipratropium (Duoneb 3.0-0.5 Mg/3 Ml) 3 ml NEB TIDRT [facility] Last Admin: 07/16/17 08:30 Dose: 3 ml Admin: 07/15/17 20:39 Dose: 3 ml Admin: 07/15/17 14:23 Dose: 3 ml Admin: 07/15/17 07:39 Dose: 3 ml Admin: 07/14/17 19:33 Dose: 3 ml Admin: 07/14/17 13:12 Dose: 3 ml Admin: 07/14/17 08:40 Dose: 3 ml Admin: 07/13/17 19:52 Dose: 3 ml Admin: 07/13/17 13:10 Dose: 3 ml Admin: 07/13/17 12:45 Dose: Not Given Docusate Sodium (Colace) 100 mg PO BID PRN PRN Reason: Constipation Enoxaparin Sodium (Lovenox) 30 mg SUBCUT Q24H [facility] Last Admin: 07/15/17 12:14 Dose: 30 mg Admin: 07/14/17 12:24 Dose: 30 mg Admin: 07/13/17 12:27 Dose: 30 mg Guaifenesin (Organ-I Nr) 200 mg PO TID [facility] Last Admin: 07/16/17 08:30 Dose: 200 mg Admin: 07/15/17 20:39 Dose: 200 mg Admin: 07/15/17 14:23 Dose: 200 mg Admin: 07/15/17 07:39 Dose: 200 mg Admin: 07/14/17 19:32 Dose: 200 mg Admin: 07/14/17 13:12 Dose: 200 mg Admin: 07/14/17 09:09 Dose: 200 mg Vancomycin HCl 1 gm/ Sodium (Chloride) 250 mls @ 167 mls/hr IV Q12H [facility] Last Admin: 07/16/17 01:34 Dose: 167 mls/hr Admin: 07/15/17 14:22 Dose: 167 mls/hr Admin: 07/15/17 01:23 Dose: 167 mls/hr Admin: 07/14/17 13:56 Dose: 167 mls/hr Potassium Chloride/Sodium Chloride (1/2 Ns With 20 Meq Kcl) 1,000 mls @ 75 mls/ hr IV ASDIRECTED [facility] Last Admin: 07/15/17 16:03 Dose: 75 mls/hr Piperacillin Sod/Tazobactam (Sod 3.375 gm/ Sodium Chloride) 50 mls @ 100 mls/ hr IV Q6H [facility] Last Admin: 07/16/17 05:30 Dose: 100 mls/hr Admin: 07/16/17 01:33 Dose: 100 mls/hr Admin: 07/15/17 18:10 Dose: 100 mls/hr Admin: 07/15/17 12:15 Dose: 100 mls/hr Ibuprofen (Motrin) 600 mg PO Q6H PRN PRN Reason: Pain (mild 1-3) Last Admin: 07/15/17 00:11 Dose: 600 mg Admin: 07/14/17 09:09 Dose: 600 mg Admin: 07/13/17 20:34 Dose: 600 mg Admin: 07/13/17 12:53 Dose: 600 mg Lorazepam (Ativan) 0.5 - 1 mg PO Q6H PRN PRN Reason: Anxiety Methylprednisolone Sodium Succinate (Solu-Medrol) 62.5 mg IVPUSH Q24H [facility] Last Admin: 07/16/17 08:29 Dose: 62.5 mg Admin: 07/15/17 10:45 Dose: 62.5 mg Ondansetron HCl (Zofran) 4 mg IV Q6H PRN PRN Reason: Nausea/Vomiting Last Admin: 07/15/17 05:19 Dose: 4 mg Admin: 07/13/17 12:55 Dose: 4 mg Temazepam (Restoril) 15 mg PO BEDTIME PRN PRN Reason: Sleep Vancomycin HCl (Pharmacy To Dose - Vancomycin) 1 dose .XX ASDIRECTED [facility]
== END 2017-07-16 11:30 | disposition home or self-care (01) | DRG 871 ==
LOC: CC.ED 07:12 → CC.MS 11:12 → UNDOADMIN 11:12 → CC.MS 11:18
PROVIDERS: ADMIT Nurse Practitioner; ATTEND General Practice
DX: A41.9 Sepsis, unspecified organism (principal); J18.9 Pneumonia, unspecified organism; J44.1 Chronic obstructive pulmonary disease with (acute) exacerbation; J44.0 Chronic obstructive pulmonary disease with (acute) lower respiratory infection; Z87.01 Personal history of pneumonia (recurrent); R06.02 Shortness of breath; F17.210 Nicotine dependence, cigarettes, uncomplicated; R53.1 Weakness; F32.9 Major depressive disorder, single episode, unspecified; F41.9 Anxiety disorder, unspecified; G89.29 Other chronic pain; M54.9 Dorsalgia, unspecified; K44.9 Diaphragmatic hernia without obstruction or gangrene; F12.10 Cannabis abuse, uncomplicated; Z88.0 Allergy status to penicillin; Z88.8 Allergy status to other drugs, medicaments and biological substances; Z91.030 Bee allergy status; R63.4 Abnormal weight loss
CPT/HCPCS: 36415; 71020; 71260; 80048; 80053; 80202; 80305; 81003; 82270; 82550; 83605; 83615; 83880; 84484; 85025; 86140; 87040; 87070; 87205; 93005; 94640; 96360; 96361; 97161-GP; 99285; A9270-GY; J1650; J2060; J2405; J2543; J2930; J3370; J3480; J7030; J7050; Q9967

== ENCOUNTER 2018-07-18 14:55 | Emergency (ER) | payer OTHER ==
[2018-07-18 14:59] VITALS: BP 112/63
[2018-07-18] MEDS ORDERED: LORazepam 2 MG/ML Syringe IM ONE (15:15)
[2018-07-18] MEDS ORDERED: ALPRAZolam 0.25 MG Tab PO PRN (15:53)
--- NOTE | 2018-07-18 15:53 | EDM.PDOC ---
ED HPI GENERAL MEDICAL PROBLEM - General Chief Complaint: Respiratory Problem Stated Complaint: SOB Time Seen by Provider: 07/18/18 15:13 Source of Information: Reports: Patient History Limitations: Reports: No Limitations - History of Present Illness INITIAL COMMENTS - FREE TEXT/NARRATIVE: Patient presents with anxiety. Had gotten in to an argument with the local police and is "having a panic attack". Has only ever had one of these before that she can't "get in to control". Patient relates that she had had to walk from the [place] to the police station and was very angry, was anxious and then couldn't breathe. Police were unable to get her to calm down so called for EMS services. She was given 100% by nasal cannula but sats were 100% on presentation to the ER. Does not currently take anything for break through panic attacks like this. Onset: Today, Sudden Duration: Minutes: Location: Reports: Generalized Severity: Severe Improves with: Reports: None Associated Symptoms: Reports: Shortness of Breath. Denies: Confusion, Chest Pain, Cough, Nausea/Vomiting, Weakness Treatments CODER: Reports: Oxygen - Related Data Allergies Allergy/AdvReac Type Severity Reaction Status Date / Time codeine Allergy Itching Verified 07/18/18 15:03 tuberculin,PPD,multi-puncture Allergy Hives Verified 07/18/18 15:03 venom-honey bee Allergy Swelling Verified 07/18/18 15:03 [bee venom (honey bee)] Home Meds: Home Meds Acetaminophen [Tylenol] 650 mg PO Q4H PRN tablet 07/16/17 [Rx] Albuterol/Ipratropium [DuoNeb 3.0-0.5 MG/3 ML] 1 inh INH TID PRN 07/18/18 [ History] Past Medical History Cardiovascular History: Reports: Heart Murmur Respiratory History: Reports: Bronchitis, Recurrent, Pneumonia, Recurrent Gastrointestinal History: Reports: Hiatal Hernia, PUD Genitourinary History: Reports: UTI, Recurrent Musculoskeletal History: Reports: Arthritis, Back Pain, Chronic, Fracture, Other (See Below) Other Musculoskeletal History: LLE FX WITH mrsa INFECTION, degenertive bone disease Neurological History: Reports: Brain Injury, Concussion, Other (See Below) Other Neuro History: short term memory loss, nerve problems in neck Psychiatric History: Reports: Anxiety, Depression, Panic Attack - Infectious Disease History Infectious Disease History: Reports: MRSA - Past Surgical History HEENT Surgical History: Reports: Tonsillectomy Female Surgical History: Reports: Tubal Ligation Social & Family History - Family History Family Medical History: Noncontributory - Tobacco Use Smoking Status *Q: Current Every Day Smoker Years of Tobacco use: 42 Packs/Tins Daily: 0.5 - Caffeine Use Caffeine Use: Reports: None - Recreational Drug Use Recreational Drug Use: Yes Recreational Drug Type: Reports: Marijuana/Hashish Recreational Drug Use Frequency: Rarely ED ROS GENERAL - Review of Systems Review Of Systems: See Below Constitutional: Denies: Weakness, Fatigue, Decreased Appetite HEENT: Reports: No Symptoms Respiratory: Reports: Shortness of Breath. Denies: Cough Cardiovascular: Denies: Chest Pain, Lightheadedness Endocrine: Denies: Fatigue GI/Abdominal: Denies: Abdominal Pain, Nausea, Vomiting : Reports: No Symptoms Musculoskeletal: Reports: No Symptoms Skin: Reports: No Symptoms Psychiatric: Reports: Anxiety ED EXAM, GENERAL - Physical Exam Exam: See Below Exam Limited By: No Limitations General Appearance: Alert, WD/WN, Mild Distress Eye Exam: Bilateral Eye: EOMI, PERRL Ears: Normal External Exam, Normal TMs Nose: Normal Inspection, Normal Mucosa, No Blood Throat/Mouth: Normal Inspection, Normal Oropharynx Head: Normocephalic Neck: Normal Inspection, Supple, Non-Tender Respiratory/Chest: No Respiratory Distress, Lungs Clear, Other (patient hyperventilating) Cardiovascular: Normal Peripheral Pulses, Regular Rate, Rhythm Neurological: Alert, Oriented Psychiatric: Anxious, Other (patient rocking back and forth on the bed) Skin Exam: Warm, Dry Course - Vital Signs Last Recorded V/S: Last Vital Signs Temp 96.4 F 07/18/18 14:55 Pulse 100 07/18/18 14:55 Resp 20 07/18/18 15:23 BP 112/63 07/18/18 14:55 Pulse Ox 100 07/18/18 14:55 - Orders/Labs/Meds Meds: Medications Discontinued Medications Generic Name Dose Route Start Last Admin Trade Name Freq PRN Reason Stop Dose Admin Alprazolam 0.25 mg 07/18/18 15:53 07/18/18 16:10 Xanax PO 0.25 mg Q8H PRN Administration Anxiety Alprazolam 0.25 mg 07/18/18 16:13 07/18/18 16:13 Xanax PO 07/18/18 16:14 0.25 mg NOW ONE Administration Lorazepam 1 mg 07/18/18 15:15 07/18/18 15:19 Ativan IM 07/18/18 15:16 1 mg ONETIME ONE Administration - Re-Assessments/Exams Free Text/Narrative Re-Assessment/Exam: 07/18/2018 Ativan 1 mg given IM with good results. Relaxed and conversive prior to discharge. Departure - Departure Time of Disposition: 15:52 Disposition: Home, Self-Care 01 Condition: Good Clinical Impression: Anxiety - Discharge Information *PRESCRIPTION DRUG MONITORING PROGRAM REVIEWED*: No *COPY OF PRESCRIPTION DRUG MONITORING REPORT IN PATIENT MARILEE: No Referrals: Selina German PA-C [Primary Care Provider] - Forms: ED Department Discharge Additional Instructions: 1. Rest 2. Xanax 0.25 mg only when needed 3. Follow up with SAHARA Crawford if needed
[2018-07-18] MEDS ORDERED: ALPRAZolam 0.25 MG Tab PO ONE (16:13)
== END 2018-07-18 16:15 | disposition home or self-care (01) ==
LOC: CC.ED 14:55
DX: F41.9 Anxiety disorder, unspecified (principal); F17.210 Nicotine dependence, cigarettes, uncomplicated; Z88.0 Allergy status to penicillin; Z91.038 Other insect allergy status
CPT/HCPCS: 96372; 99285; A9270; J2060

== ENCOUNTER 2020-05-19 17:46 | Emergency (ER) | payer MEDICAID, OTHER ==
[2020-05-19 17:53] VITALS: BP 123/80; PULSE 64
[2020-05-19 18:30] LABS: CHLORIDE,CL 107 mEq/L (98-106); SODIUM,NA 146 mEq/L (136-145)
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
== END 2020-05-19 19:25 | disposition home or self-care (01) ==
LOC: CC.ED 17:46
DX: S60.812A Abrasion of left wrist, initial encounter (principal); F32.89 Other specified depressive episodes; F10.129 Alcohol abuse with intoxication, unspecified; F17.210 Nicotine dependence, cigarettes, uncomplicated; Z88.5 Allergy status to narcotic agent; Z88.0 Allergy status to penicillin; Z88.7 Allergy status to serum and vaccine; Z91.030 Bee allergy status; Y90.8 Blood alcohol level of 240 mg/100 ml or more; Z59.0 Homelessness; X78.1XXA Intentional self-harm by knife, initial encounter
CPT/HCPCS: 36415; 80048; 80307; 85025; 99284